=== PATIENT | male | born 1955 | race Caucasian/White ===

== ENCOUNTER 2022-10-28 06:53 | Day surgery (SDC) | payer BC, OTHER ==
[2022-10-24 15:21] LABS: Hematocrit 27.5 % (39.6-49.0); Lymphocytes % 16.1 % (15.3-44.8); MCV 60.1 fL (80-100); MPV 8.5 fL (7.6-11.3); Platelets 387 thou/uL (152-406); RBC Red Blood Cell Count 4.57 M/uL (4.33-5.43)
[2022-10-24 15:28] LABS: Anisocytosis 3+; Blood Morphology Comment NOTED (NOT SEEN); Hypochromasia 3+; Platelet Estimate ADEQ; White Blood Cell Scan OK (OK)
--- NOTE | 2022-10-24 15:41 | RAD REPORT ---
EXAM DESCRIPTION: RAD - Chest Pa And Lat (2 Views) - 10/24/2022 3:35 pm CLINICAL HISTORY: Pre op pending mass removal Chest pain. COMPARISON: <Comparisons> FINDINGS: The lungs are clear. The heart is normal in size. No displaced fractures. IMPRESSION: No acute or concerning finding suspected. The USPSTF recommends annual screening for lung cancer with low-dose CT (LDCT) in adults aged 50 to 8 0 years who have a 20 pack-year smoking history and currently smoke or have quit within the past 15 y ears.
[2022-10-28] MEDS ORDERED: CEFAZOLIN SODIUM 1 GM/VIAL ONE ×2 (07:18→09:05)
[2022-10-28] MEDS ORDERED: Ringers Lactate 1,000 ML IV ONE (07:19)
[2022-10-28] MEDS ORDERED: SUCCINYLCHOLINE 20 MG/ML (10 ML) IV ONE (08:33)
[2022-10-28] MEDS ORDERED: FENTANYL CITR 100 MCG/2 ML ONE (08:35)
[2022-10-28] MEDS ORDERED: propofoL 200 MG/20 ML VIAL IV ONE (08:35)
[2022-10-28] MEDS ORDERED: LIDOCAINE 2% MPF 5 ML VIAL ONE ×2 (08:36→09:41)
[2022-10-28] MEDS ORDERED: MIDAZOLAM HCL 2 MG/2 ML INJ ONE (08:36)
[2022-10-28] MEDS ORDERED: GLYCOPYRROLATE 0.2 MG/ML SYR ONE (08:59)
[2022-10-28] MEDS ORDERED: EPHEDRINE SULF 50 MG/ML VIAL ONE (09:03)
[2022-10-28] MEDS ORDERED: ONDANSETRON 4 MG/2 ML VIAL ONE (09:06)
[2022-10-28] MEDS ORDERED: dexAMETHasone 4 MG/ML VIAL ONE (09:06)
[2022-10-28] MEDS ORDERED: KETAMINE HCL IN 0.9 % NACL 50 MG/5 ML SYRINGE IV ONE (09:25)
[2022-10-28] MEDS ORDERED: Mastisol Adhesive Liq ONE (09:41)
--- NOTE | 2022-10-28 09:58 | P.BOP ---
Preoperative diagnosis: LArge tender posterior neck subQ mass. tender scalp mass Postoperative diagnosis: same Primary procedure: 1. Excisional biopsy large tender posterior neck subQ mass [id number] Secondary procedure: 2. Excisional biopsy tender scalp subQ mass 5x5cm [employer] Field Service Technician: JANET NGUYEN (NEUROSURGICAL PHYSICIAN ASSISTANT) Estimated blood loss: <<20cc Specimen: mass Findings: mass Anesthesia: General Complications: None Drain(s): SEBASTIEN drain Transferred to: Recovery Room Condition: Good
[2022-10-28] MEDS: CODEINE 30MG/APAP 300MG TAB ONE (11:50)
[2022-10-28 12:24] VITALS: BP 141/4; TEMP 97; O2SAT 97
--- NOTE | 2022-10-28 13:16 | EKG ---
Test Date: 2022-10-24 Test Time: 15:04:55 [employer] Roller: AXEL MEASUREMENT RESULTS: Intervals: Rate: 70 ID: [id number] QRSD: 78 QT: 396 QTc: 427 [place]: P: 58 ID: [id number] QRS: 48 T: 61 INTERPRETIVE STATEMENTS: Normal sinus rhythm Nonspecific ST abnormality Abnormal ECG No previous ECG available for comparison Electronically Signed On 10-28-22 13:11:05 CDT by Raji Brennan
== END 2022-10-28 11:55 | disposition home or self-care (01) ==
LOC: OR 06:53
PROVIDERS: ATTEND Surgery
PROC: 0JB00ZZ Excision of Scalp Subcutaneous Tissue and Fascia, Open Approach (ICD-10-PCS; principal; 2022-10-28 08:30)
DX: D17.0 Benign lipomatous neoplasm of skin and subcutaneous tissue of head, face and neck (principal); R22.1 Localized swelling, mass and lump, neck; R22.0 Localized swelling, mass and lump, head
CPT/HCPCS: 11426 ×2; 93005; 85025; 80048; 36415; 88304; 71046; J2704; J1100; J2001 ×2; J2250; J3010; J2405; J7120; J0690 ×2